=== PATIENT | female | born 1985 | race African-American/Black ===

== ENCOUNTER 2020-06-30 13:10 | Inpatient (IN) | payer BC, OTHER ==
[2020-06-30 14:57] VITALS: BMI 28.3
[2020-06-30] MEDS ORDERED: AMPICILLIN SODIUM 2 GM VIAL IVPB ONE (15:00)
[2020-06-30] MEDS ORDERED: ELECTROLYTE-148 SOLN 1,000 ML IV SCH (15:30)
[2020-06-30] MEDS ORDERED: AMPICILLIN SODIUM 2 GM VIAL ONE (15:34)
[2020-06-30 15:50] LABS: BASO % 0.3 % (0-2.0); EOS % 2.9 % (0-4.5); HEMATOCRIT 31.1 % (32.4-45.2); HEMOGLOBIN 10.1 GM/dL (10.7-15.3); MCH 27.2 pg (25.7-33.7); MCHC 32.5 g/dl (32.0-36.0); MEAN CELL VOLUME 83.7 fl (80-96); MEAN PLT VOLUME 8.2 fl (7.5-11.1); MONO % 12.2 % (3.8-10.2); NEUT % 62.6 % (42.8-82.8); PLATELET COUNT 153 K/MM3 (134-434); RBC 3.72 M/mm3 (3.60-5.2); RDW 16.2 % (11.6-15.6); WHITE BLOOD COUNT 5.5 K/mm3 (4.0-10.0)
[2020-06-30 15:56] LABS: INR 1.06 (0.83-1.09)
[2020-06-30 15:58] LABS: ACTIVATED PTT 27.4 SECONDS (25.2-36.5)
[2020-06-30] MEDS ORDERED: OXYTOCIN 30 UNITS in 0.9% NS 30 UNIT/500 ML INFUS.BAG IVPB SCH (16:00)
[2020-06-30] MEDS ORDERED: OXYTOCIN 30 UNITS in 0.9% NS 30 UNIT/500 ML INFUS.BAG IVPB ONE (16:18)
[2020-06-30 16:21] LABS: CALCIUM 8.3 mg/dL (8.5-10.1)
[2020-06-30 16:22] LABS: BLOOD UREA NITROGEN 7.9 mg/dL (7-18)
[2020-06-30 16:25] LABS: CREATININE 0.5 mg/dL (0.55-1.3)
[2020-06-30 16:51] LABS: SYPHILIS W/ RPR CONF NON-REACTIVE (NONREACTIVE)
[2020-06-30 17:19] LABS: HIV INTERPRETATION NEGATIVE (NEGATIVE)
[2020-06-30] MEDS ORDERED: BUTORPHANOL TARTRATE 2 MG/ML VIAL IVPB ONE (19:35)
[2020-06-30] MEDS ORDERED: PROMETHAZINE HCL 25 MG/1 ML VIAL IVPUSH ONE (19:35)
[2020-06-30] MEDS ORDERED: BUTORPHANOL TARTRATE 2 MG/ML VIAL ONE (19:44)
[2020-06-30] MEDS ORDERED: AMPICILLIN SODIUM 1 GM VIAL ONE (19:44)
[2020-06-30] MEDS ORDERED: PROMETHAZINE HCL 25 MG/1 ML VIAL ONE (19:44)
[2020-06-30] MEDS: AMPICILLIN SODIUM 1 GM VIAL IVPB SCH ×2 (19:45→23:04)
[2020-06-30] MEDS ORDERED: BENZOCAINE 28 GM HEMORRHOIDAL OINTMENT TP PRN (20:59)
[2020-06-30] MEDS ORDERED: METHYLERGONOVINE MALEATE 0.2 MG/1 ML AMP IM PRN (20:59)
[2020-06-30] MEDS ORDERED: WITCH HAZEL 50% (TUCKS) 40 PAD/JAR PAD TP PRN (20:59)
[2020-06-30] MEDS ORDERED: BENZOCAINE 20% 57 GM BOTTLE TP PRN (20:59)
[2020-06-30] MEDS ORDERED: oxyCODONE HCL 5 MG TABLET PO PRN (20:59)
[2020-06-30] MEDS ORDERED: IBUPROFEN 600 MG TABLET (FP) PO PRN (20:59)
[2020-06-30] MEDS ORDERED: ACETAMINOPHEN 325 MG TABLET (FP) PO PRN (20:59)
[2020-06-30] MEDS ORDERED: BISACODYL 10 MG SUPP.RECT RC PRN (20:59)
[2020-06-30] MEDS ORDERED: OXYTOCIN 20 UNITS in 0.9% NS 20 UNIT/1,000 ML INFUS.BAG IV SCH (21:00)
[2020-07-01 08:41] LABS: BASO % 0.4 % (0-2.0); EOS % 1.8 % (0-4.5); HEMATOCRIT 28.6 % (32.4-45.2); HEMOGLOBIN 9.4 GM/dL (10.7-15.3); LYMPH % 16.2 % (8-40); MCH 27.5 pg (25.7-33.7); MEAN CELL VOLUME 83.5 fl (80-96); MEAN PLT VOLUME 8.5 fl (7.5-11.1); MONO % 13.4 % (3.8-10.2); NEUT % 68.2 % (42.8-82.8); PLATELET COUNT 142 K/MM3 (134-434); RBC 3.43 M/mm3 (3.60-5.2); RDW 16.2 % (11.6-15.6); WHITE BLOOD COUNT 8.7 K/mm3 (4.0-10.0)
[2020-07-01] MEDS: PRENATAL VITAMINS W/ FOLIC ACID TABLET (FP) PO SCH (09:58)
[2020-07-01] MEDS ORDERED: FLU VACCINE (FLULAVAL) PF 60 MCG/0.5 ML SYRINGE 2020-2021 IM ONE (10:00)
[2020-07-01] MEDS ORDERED: SENNOSIDES/DOCUSATE COMBO (SENNA PLUS) TABLET (UD) PO PRN (22:00)
[2020-07-02 09:07] VITALS: BP 118/73; PULSE 78; TEMP 98.7
[2020-07-02] MEDS: PRENATAL VITAMINS W/ FOLIC ACID TABLET (FP) PO SCH (11:49)
== END 2020-07-02 12:35 | disposition home or self-care (01) | DRG 807 ==
LOC: JLDR 13:10 → J3W 23:15
PROVIDERS: ADMIT Obstetrics & Gynecology; ATTEND Obstetrics & Gynecology
PROC: 3E033VJ Introduction of Other Hormone into Peripheral Vein, Percutaneous Approach (ICD-10-PCS; principal; 2020-06-30)
PROC: 10E0XZZ Delivery of Products of Conception, External Approach (ICD-10-PCS; 2020-06-30)
PROC: 10907ZC Drainage of Amniotic Fluid, Therapeutic from Products of Conception, Via Natural or Artificial Opening (ICD-10-PCS; 2020-06-30)
DX: O36.63X0 Maternal care for excessive fetal growth, third trimester, not applicable or unspecified (principal); Z37.0 Single live birth; O24.420 Gestational diabetes mellitus in childbirth, diet controlled; Z3A.00 Weeks of gestation of pregnancy not specified
CPT/HCPCS: 36415; 59409; 80048; 85025; 85610; 85730; 86593; 86780; 86850; 86900; 86901; 87389; G0008; Q2036